=== PATIENT | male | born 1935 | race Caucasian/White ===

== ENCOUNTER → 2016-05-24 | Outpatient (CLI) | payer MEDICARE ==
[~2016-05-24] MED LIST: BAYER ASPIRIN PO; FLEXERIL PO; FLUT1DIS3 INH; FURO40TA6 PO; GLIP5TAB10 PO; MAGN400T26 PO; METO50TA82 PO; MULT1TAB13 PO; OLME40TA PO; OMEG1CAP57 PO; ROSU40TA PO; [UNRECOGNIZED DRUG - MIXTURE] PO
== END | disposition home or self-care (01) ==
LOC: CVU 09:48
PROVIDERS: ATTEND Internal Medicine Cardiovascular Disease
DX: I65.23 Occlusion and stenosis of bilateral carotid arteries (principal); J44.9 Chronic obstructive pulmonary disease, unspecified; E11.9 Type 2 diabetes mellitus without complications; I10 Essential (primary) hypertension; I25.10 Atherosclerotic heart disease of native coronary artery without angina pectoris; Z95.5 Presence of coronary angioplasty implant and graft; Z99.81 Dependence on supplemental oxygen; Z87.891 Personal history of nicotine dependence
CPT/HCPCS: 93880

== ENCOUNTER 2016-11-09 09:02 | Inpatient (IN) | payer MEDICARE ==
[~2016-11-09] VITALS: Ht 167.6 cm; Wt 72.6 kg
[~2016-11-09 09:02] MED LIST changes: -OLME40TA PO; +OLME40TA12 PO
[2016-11-09] MEDS ORDERED: ACETAMINOPHEN 325 MG TABLET ONE (09:54)
[2016-11-09] MEDS ORDERED: ACETAMINOPHEN 325 MG TABLET PO ONE (11:00)
[2016-11-09 11:26] LABS: HEMATOCRIT 35.1 % (39.2-51.8); HEMOGLOBIN 11.8 g/dL (13.7-18.0); WHITE BLOOD COUNT 8.2 x10^3/uL (3.4-10)
[2016-11-09] MEDS ORDERED: SODIUM CHLORIDE 0.9% 1,000ML IVBOLUS ONE (12:00)
[2016-11-09] MEDS ORDERED: SODIUM CHLORIDE FLUSH 10ML SYR IVF ONE (12:00)
[2016-11-09 12:12] LABS: ASPARTATE AMINO TRANSFERASE 107 U/L (15-37); BLOOD UREA NITROGEN 25 mg/dL (7-18)
[2016-11-09] MEDS ORDERED: DEXTROSE 50%, 50ML SYRINGE IVPush ONE (13:00)
[2016-11-09] MEDS ORDERED: POTASSIUM CHLORIDE 10 MEQ in DEXTROSE 10% 1,000 ML IV SCH (13:00)
[2016-11-09] MEDS: NS + 20MEQ KCL 1,000 ML IV SCH ×2 (13:44→21:44)
[2016-11-09] MEDS ORDERED: ENOXAPARIN 40 MG/0.4 ML SQ SCH (14:00)
[2016-11-09] MEDS ORDERED: ONDANSETRON 2MG/ML, 2ML IVPush PRN (14:00)
[2016-11-09] MEDS ORDERED: ACETAMINOPHEN 325 MG TABLET PO PRN (14:00)
[2016-11-09] MEDS ORDERED: morphine SULFATE 10 MG/ML, 1ML IVPush PRN (14:00)
[2016-11-09] MEDS ORDERED: LORazepam 1MG TABLET PO PRN (14:00)
[2016-11-09] MEDS: NICOTINE 14MG/24 HR PATCH.TD24 TD SCH (14:00)
[2016-11-09] MEDS ORDERED: DOCUSATE 100 MG CAPSULE PO PRN (14:00)
[2016-11-09] MEDS ORDERED: LORazepam 2 MG/ML, 1ML IVPush PRN (14:00)
[2016-11-09] MEDS ORDERED: POLYETHYLENE GLYCOL 17 GM PACKET PO PRN (15:00)
[2016-11-09 15:53] VITALS: BP 161/79
[2016-11-09] MEDS: TAMSULOSIN 0.4 MG CAP.ER.24H PO SCH (15:53)
[2016-11-09 18:25] VITALS: BP 120/66
[2016-11-09] MEDS: FLUTICASONE/VILANTEROL 100-25MCG/INH INH SCH (21:00)
[2016-11-09] MEDS ORDERED: ASPIRIN 325 MG TABLET PO SCH (21:00)
[2016-11-09] MEDS: MAGNESIUM OXIDE 400 MG TABLET PO SCH (21:41)
[2016-11-09] MEDS: METOPROLOL TARTRATE 50 MG TABLET PO SCH (21:41)
[2016-11-10 01:36] VITALS: BP 147/58
[2016-11-10 06:19] LABS: ASPARTATE AMINO TRANSFERASE 61 U/L (15-37); BLOOD UREA NITROGEN 24 mg/dL (7-18)
[2016-11-10] MEDS: NS + 20MEQ KCL 1,000 ML IV SCH (06:33)
[2016-11-10] MEDS: INSULIN ASPART 100 UNITS/ML, PEN SQ-INSULIN SCH ×2 (07:30→11:14)
[2016-11-10 07:41] VITALS: BP 161/67
[2016-11-10] MEDS: FLUTICASONE/VILANTEROL 100-25MCG/INH INH SCH (08:22)
[2016-11-10] MEDS: MAGNESIUM OXIDE 400 MG TABLET PO SCH (08:23)
[2016-11-10] MEDS: METOPROLOL TARTRATE 50 MG TABLET PO SCH (08:23)
[2016-11-10] MEDS: TAMSULOSIN 0.4 MG CAP.ER.24H PO SCH (08:23)
[2016-11-10] MEDS ORDERED: NS + 40MEQ KCL 1,000 ML IV SCH (08:30)
[2016-11-10] MEDS ORDERED: SENNA/DOCUSATE TABLET PO SCH (09:00)
[2016-11-10] MEDS: NICOTINE 14MG/24 HR PATCH.TD24 TD SCH (11:14)
[2016-11-10 13:03] VITALS: BP 149/74
[2016-11-10] MEDS ORDERED: POTASSIUM CHLORIDE 20 MEQ TAB.ER.PRT PO SCH (17:00)
== END 2016-11-10 15:09 | disposition home or self-care (01) | DRG 551 ==
LOC: ED 10:04 → EDIP 13:04 → 3NE 14:30
PROVIDERS: ADMIT Family Medicine; ATTEND Family Medicine
DX: M51.36 Other intervertebral disc degeneration, lumbar region (principal); N17.0 Acute kidney failure with tubular necrosis; E87.1 Hypo-osmolality and hyponatremia; E11.649 Type 2 diabetes mellitus with hypoglycemia without coma; G89.11 Acute pain due to trauma; W18.30XA Fall on same level, unspecified, initial encounter; E11.22 Type 2 diabetes mellitus with diabetic chronic kidney disease; M54.5 Low back pain; E87.6 Hypokalemia; F10.10 Alcohol abuse, uncomplicated; F17.200 Nicotine dependence, unspecified, uncomplicated; G89.29 Other chronic pain; I12.9 Hypertensive chronic kidney disease with stage 1 through stage 4 chronic kidney disease, or unspecified chronic kidney disease; I25.10 Atherosclerotic heart disease of native coronary artery without angina pectoris; J44.9 Chronic obstructive pulmonary disease, unspecified; R33.9 Retention of urine, unspecified; N18.9 Chronic kidney disease, unspecified; Z66 Do not resuscitate; Z83.3 Family history of diabetes mellitus; Z85.46 Personal history of malignant neoplasm of prostate; Z95.1 Presence of aortocoronary bypass graft; Z88.2 Allergy status to sulfonamides; Z90.79 Acquired absence of other genital organ(s); Y92.89 Other specified places as the place of occurrence of the external cause; Y93.89 Activity, other specified
CPT/HCPCS: 36415; 72110; 80047; 80053; 81001; 82550; 82962; 83036; 83605; 83735; 84100; 85025; 85610; 85730; 93005; J1650; J1815; J3480; J7030